=== PATIENT | male | born 1995 | race African-American/Black ===

== ENCOUNTER 2018-06-26 22:55 | Emergency (ER) | payer OTHER ==
[2018-06-27 00:39] LABS: HEMATOCRIT 47.4 % (42.0-52.0); HEMOGLOBIN 16.5 g/dl (13.5-17.5); MEAN CORPUSCULAR HEMOGLOBIN 32.9 pg (27.0-33.0); MEAN CORPUSCULAR HGB CONC 34.8 g/dl (32.0-36.5); MEAN CORPUSCULAR VOLUME 94.4 fl (80.0-96.0); PLATELET COUNT, AUTOMATED 256 10^3/uL (150-450); RED BLOOD COUNT 5.02 10^6/uL (4.30-6.10); RED CELL DISTRIBUTION WIDTH 11.2 % (11.5-14.5); WHITE BLOOD COUNT 6.7 10^3/uL (4.0-10.0)
[2018-06-27 01:08] LABS: AMPHETAMINES LEVEL URINE NEGATIVE (NEGATIVE); BARBITURATES URINE NEGATIVE (NEGATIVE); BENZODIAZEPINES URINE NEGATIVE (NEGATIVE); CANNABINOIDS URINE NEGATIVE (NEGATIVE); COCAINE METABOLITE URINE NEGATIVE (NEGATIVE); METHADONE URINE NEGATIVE (NEGATIVE); OPIATES URINE NEGATIVE (NEGATIVE); PHENCYCLIDINE URINE NEGATIVE (NEGATIVE)
[2018-06-27 01:09] LABS: ACETAMINOPHEN LEVEL < 2.0 UG/ML (10.0-30.0); ALBUMIN 4.1 GM/DL (3.2-5.2); ALBUMIN/GLOBULIN RATIO 1.05 (1.00-1.93); ALKALINE PHOSPHATASE 71 U/L (45-117); ALT/SGPT 79 U/L (12-78); ANION GAP 9 MEQ/L (8-16); AST/SGOT 42 U/L (7-37); BILIRUBIN,DIRECT 0.2 MG/DL (0.0-0.2); BILIRUBIN,TOTAL 0.9 MG/DL (0.2-1.0); BLOOD UREA NITROGEN 15 MG/DL (7-18); CALCIUM LEVEL 9.3 MG/DL (8.5-10.1); CARBON DIOXIDE LEVEL 29 MEQ/L (21-32); CHLORIDE LEVEL 103 MEQ/L (98-107); CREATININE FOR GFR 1.09 MG/DL (0.70-1.30); ETHYL ALCOHOL (ETHANOL) < 0.003 % (0.000-0.010); GLOMERULAR FILTRATION RATE > 60.0 (>60); GLUCOSE, FASTING 83 MG/DL (70-100); POTASSIUM SERUM 4.1 MEQ/L (3.5-5.1); SALICYLATE LEVEL < 1.7 MG/DL (5.0-30.0); SODIUM LEVEL 141 MEQ/L (136-145)
[2018-06-27] MEDS ORDERED: METAL LOCK LOOP XX (06:10)
== END 2018-06-27 14:39 ==
LOC: M ED 22:55
DX: R45.851 Suicidal ideations (principal); F32.9 Major depressive disorder, single episode, unspecified; Z79.899 Other long term (current) drug therapy
CPT/HCPCS: 93005

== ENCOUNTER → 2018-08-23 | Outpatient (REF) | payer OTHER | LOC: M LAB REF 13:02 | PROVIDERS: ATTEND Physician Assistant | DX: J02.9 Acute pharyngitis, unspecified (principal) ==

== ENCOUNTER → 2020-09-29 | Outpatient (REF) | payer OTHER | LOC: M LAB REF 19:30 | PROVIDERS: ATTEND Physician Assistant | DX: J03.90 Acute tonsillitis, unspecified (principal) ==

== ENCOUNTER 2021-10-09 20:30 | Emergency (ER) | payer MEDICAID, OTHER ==
[~2021-10-09] VITALS: Ht 190.5 cm; Wt 100.0 kg
[2021-10-09] MEDS ORDERED: traMADol 50 MG TAB PO ONE (23:25)
[2021-10-09] MEDS ORDERED: KETOROLAC 60MG 2ML VIAL IM ONE (23:25)
[2021-10-09 23:37] VITALS: BP 124/58
== END 2021-10-09 23:42 | disposition home or self-care (01) ==
LOC: M ED 20:30
DX: H92.03 Otalgia, bilateral (principal); H83.3X9 Noise effects on inner ear, unspecified ear; Z88.8 Allergy status to other drugs, medicaments and biological substances
CPT/HCPCS: 96372; 99283; J1885

== ENCOUNTER 2022-01-06 14:15 | Emergency (ER) | payer MEDICAID, OTHER ==
[~2022-01-06] VITALS: Ht 188 cm; Wt 46.4 kg
[2022-01-06] MEDS ORDERED: KETOROLAC 30 MG/ML 1ML VIAL IM ONE (17:10)
[2022-01-06] MEDS ORDERED: CYCL5TAB PO (17:52)
[2022-01-06] MEDS ORDERED: PRED20TA PO (17:52)
[2022-01-06 18:02] VITALS: BP 168/88
== END 2022-01-06 18:05 | disposition home or self-care (01) ==
LOC: M ED 14:15
DX: M54.9 Dorsalgia, unspecified (principal); R03.0 Elevated blood-pressure reading, without diagnosis of hypertension; Z88.8 Allergy status to other drugs, medicaments and biological substances
CPT/HCPCS: 72128; 72131; 96372; 99283; J1885

== ENCOUNTER → 2023-08-22 | Outpatient (REF) | payer OTHER ==
[~2023-08-22] MED LIST: CYCL5TAB PO; PRED20TA PO
== END ==
LOC: M SFHCDERM 09:05
PROVIDERS: ATTEND Physician Assistant
DX: L02.91 Cutaneous abscess, unspecified (principal)

== ENCOUNTER 2023-09-06 22:52 | Emergency (ER) | payer OTHER ==
[~2023-09-06] VITALS: Ht 190.5 cm; Wt 102.0 kg
[2023-09-06 22:52] VITALS: BP 148/86; TEMP 98.6; O2SAT 99
[2023-09-06 23:37] LABS: BASO % 0.7 % (0.0-1.0); EOS # 0.1 10^3/uL (0.0-0.5); EOS % 1.4 % (0.0-3.0); HEMATOCRIT 43.5 % (42.0-52.0); HEMOGLOBIN 14.9 g/dl (13.5-17.5); LYMPH # 2.8 10^3/uL (1.5-5.0); MEAN CORPUSCULAR HGB CONC 34.3 g/dl (32.0-36.5); MEAN CORPUSCULAR VOLUME 96.5 fl (80.0-96.0); MONO # 0.5 10^3/uL (0.0-0.8); NEUTROPHILS # 2.4 10^3/uL (1.5-8.5); NEUTROPHILS % 40.9 % (36.0-66.0); PLATELET COUNT, AUTOMATED 220 10^3/uL (150-450); RED BLOOD COUNT 4.51 10^6/uL (4.30-6.10); WHITE BLOOD COUNT 5.9 10^3/uL (4.0-10.0)
[2023-09-06 23:53] LABS: CK-MB VALUE MASS < 1.0 NG/ML (<3.6)
[2023-09-06 23:55] LABS: ALBUMIN 4.1 G/DL (3.2-5.2); ALKALINE PHOSPHATASE 51 U/L (46-116); ALT/SGPT 26 U/L (7.0-40); AST/SGOT 33 U/L (<34); BILIRUBIN,TOTAL 0.8 MG/DL (0.3-1.2); BLOOD UREA NITROGEN 17 MG/DL (9-23); CALCIUM LEVEL 8.7 MG/DL (8.5-10.1); CARBON DIOXIDE LEVEL 27 MMOL/L (20-31); CHLORIDE LEVEL 104 MMOL/L (98-107); CREATININE FOR GFR 1.01 MG/DL (0.70-1.30); GLOMERULAR FILTRATION RATE > 60.0 (>60); GLUCOSE, FASTING 129 MG/DL (60-100); POTASSIUM SERUM 4.1 MMOL/L (3.5-5.1); SODIUM LEVEL 138 MMOL/L (136-145); TOTAL PROTEIN 7.2 G/DL (5.7-8.2)
[2023-09-06 23:56] LABS: CPK CREATINE PHOSPHOKINASE 422 U/L (46-171); MB/CK RELATIVE INDEX 0.23 (< OR =4)
== END 2023-09-07 03:07 | disposition left against medical advice (07) ==
LOC: M ED 22:52
DX: Z53.21 Procedure and treatment not carried out due to patient leaving prior to being seen by health care provider (principal)

== ENCOUNTER 2023-12-09 12:25 | Emergency (ER) | payer OTHER ==
[~2023-12-09] VITALS: Ht 190.5 cm; Wt 96.2 kg
[2023-12-09] MEDS ORDERED: IBUP-1022 PO (12:40)
[2023-12-09] MEDS: KETOROLAC 30 MG/ML 1ML VIAL IM ONE (16:14)
[2023-12-09] MEDS ORDERED: METH-1164 PO (17:31)
[2023-12-09] MEDS ORDERED: NAPR-837 PO (17:31)
[2023-12-09 17:40] VITALS: BP 132/73; TEMP 98.2; O2SAT 97
== END 2023-12-09 17:42 | disposition home or self-care (01) ==
LOC: M ED 13:34
DX: M54.2 Cervicalgia (principal); F41.9 Anxiety disorder, unspecified; F32.A Depression, unspecified; F12.10 Cannabis abuse, uncomplicated; Z88.8 Allergy status to other drugs, medicaments and biological substances; Z79.1 Long term (current) use of non-steroidal anti-inflammatories (NSAID); Z79.891 Long term (current) use of opiate analgesic
CPT/HCPCS: 72052; 87486; 87581; 87633; 87798; 96372; 99283; J1885